=== PATIENT | male | born 1995 | race African-American/Black ===

== ENCOUNTER 2017-09-24 18:17 | Observation (INO) | payer OTHER ==
[~2017-09-24] VITALS: Ht 170.2 cm; Wt 61.4 kg
[2017-09-24] MEDS ORDERED: ACETAMINOPHEN 325 MG TAB PO STA (18:28)
[2017-09-24] MEDS ORDERED: OPTIRAY 320 IV PRN (18:45)
[2017-09-24 18:59] LABS: BASO % 0.3 %; BASO ABS # 0.02 K/uL (0-0.2); EOS % 1.3 %; HEMATOCRIT 41.7 % (42-52); HEMOGLOBIN 13.3 g/dL (14.0-18.0); IG# 0.04 K/uL (0.00-0.02); LYMPH % 37.2 %; LYMPH ABS # 2.96 K/uL (1.2-3.4); MEAN CELL VOLUME 71.3 fL (80-100); MEAN CORPUSCULAR HEMOGLOBIN 22.7 pg (25-34); MEAN CORPUSCULAR HGB CONC 31.9 g/dl (32-36); MEAN PLATELET VOLUME 11.6 fL (7.4-10.4); MONO % 7.5 %; NEUT % 53.2 %; NEUT ABS # 4.24 K/uL (1.4-6.5); PLATELET COUNT 196 K/uL (130-400); RED CELL DISTRIBUTION WIDTH CV 14.9 % (11.5-14.5); RED CELL DISTRIBUTION WIDTH SD 38.7 fL (36.4-46.3); WHITE BLOOD COUNT 7.96 K/uL (4.8-10.8)
[2017-09-24 19:21] LABS: ALBUMIN 3.9 gm/dl (3.4-5.0); CALCIUM 8.7 mg/dl (8.5-10.1); CREATININE 1.16 mg/dl (0.60-1.40); POTASSIUM 3.4 mmol/L (3.5-5.1); TOTAL PROTEIN 7.3 gm/dl (6.4-8.2)
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
[2017-09-24] MEDS ORDERED: LORAZEPAM 0.5 MG TAB PO PRN (20:45)
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
[2017-09-24] MEDS ORDERED: IV FLUIDS COMPLETED PRN (21:15)
[2017-09-24] MEDS: KETOROLAC TROMETHAMINE 30 MG/ML VIAL IV PRN (21:25)
[2017-09-24 21:55] VITALS: BP 117/65; PULSE 67; TEMP 37; O2SAT 97; Ht 170.2 cm; Wt 61.4 kg
[2017-09-24] MEDS: TRAMADOL HCL 50 MG TAB PO PRN (23:08)
[2017-09-24 23:40] VITALS: BP 119/56; PULSE 67; TEMP 37; O2SAT 97
[2017-09-25] VITALS (11 sets, daily range): BP systolic 112–138; BP diastolic 53–73; PULSE 56–70; TEMP 36.5–37; O2SAT 95–100
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
--- NOTE | 2017-09-25 07:26 | DIAGNOSTIC IMAGING REPORT ---
CHEST ONE VIEW PORTABLE CLINICAL HISTORY: 22 years-old Male presenting with left pneumothorax. TECHNIQUE: Portable upright AP view of the chest was obtained. COMPARISON: CT chest from the previous day. FINDINGS: Cardiomediastinal silhouette normal. Persistent small to moderate left apical pneumothorax with a pleural separation of 3.6 cm. This is similar to the chest CT from yesterday allowing for prior supine technique. Osseous structures normal. Upper abdomen normal. IMPRESSION: 1. Small to moderate left apical pneumothorax. No significant change. Continued follow-up recommended. Electronically signed by: Davonte Chacon M.D. 09/25/2017 7:25 AM Dictated Date/Time: 09/25/2017 7:24 AM
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
[2017-09-25] MEDS: ENOXAPARIN 30 MG/0.3 ML SYR SQ SCH (11:41)
[2017-09-25] MEDS: KETOROLAC TROMETHAMINE 30 MG/ML VIAL IV PRN ×2 (16:27→22:43)
[2017-09-25] MEDS: TRAMADOL HCL 50 MG TAB PO PRN (19:23)
[2017-09-26] VITALS (7 sets, daily range): BP systolic 108–121; BP diastolic 53–72; PULSE 52–57; TEMP 36.5–37; O2SAT 97–100
[2017-09-26] MEDS: ENOXAPARIN 30 MG/0.3 ML SYR SQ SCH (09:02)
--- NOTE | 2017-09-26 09:19 | DIAGNOSTIC IMAGING REPORT ---
CHEST ONE VIEW PORTABLE CLINICAL HISTORY: left pneumothorax pneumothorax COMPARISON STUDY: 09/25/2017 FINDINGS: Moderate decrease in volume of a left-sided pneumothorax. Current maximum pleural separation is 2.6 cm. This is improved from the prior measurement of 3.5 cm. Lungs otherwise appear clear. There are no focal infiltrative changes. IMPRESSION: Improving left-sided pneumothorax. Current maximum pleural separation is 2.6 cm improved from the prior exam of 3.5 cm. The above report was generated using voice recognition software. It may contain grammatical, syntax or spelling errors. Electronically signed by: Eddie Moreno M.D. 09/26/2017 9:17 AM Dictated Date/Time: 09/26/2017 9:16 AM
[2017-09-26] MEDS: KETOROLAC TROMETHAMINE 30 MG/ML VIAL IV PRN (09:29)
[2017-09-26] MEDS ORDERED: ULT50X PO (09:34)
--- NOTE | 2017-09-26 09:37 | Discharge Instructions ---
Discharge Instructions Date of Service Sep 26, 2017. Admission Reason for Admission: Rib Fracture; Traumatic Pneumohemothorax Discharge Discharge Diagnosis / Problem: Left traumatic pneumothorax Discharge Goals Goal(s): Decrease discomfort (Use pain meds as discussed.) Activity Recommendations Activity Limitations: as noted below Lifting Limitations: gradually increase as tolerated Exercise/Sports Limitations: gradually increase as tolerated May Resume Sexual Activity: when tolerated Shower/Bathe: no limitations Driving or Machine Use: resume 3 days after discharge . Instructions / Follow-Up Instructions / Follow-Up Avoid strenuous activity until I see you in the office this week. May shower. Call [phone] Weaver if there are any problems. Current Hospital Diet Patient's current hospital diet: Regular Diet Discharge Diet Recommended Diet: Regular Diet Procedures Procedures Performed: None Pending Studies Studies pending at discharge: no Medical Emergencies . Who to Call and When: Medical Emergencies: If at any time you feel your situation is an emergency, please call 911 immediately. . Non-Emergent Contact Non-Emergency issues call your: Surgeon . "Provider Documentation" section prepared by Kaiden Weaver. .
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
== END 2017-09-26 10:35 | disposition home or self-care (01) ==
LOC: C.EDB 18:19 → C.MSN 20:40 → ENRESERV 20:56
PROVIDERS: ADMIT Surgery; ATTEND Surgery
DX: S29.9XXA Unspecified injury of thorax, initial encounter (principal); J93.9 Pneumothorax, unspecified; V47.0XXA Car driver injured in collision with fixed or stationary object in nontraffic accident, initial encounter

== ENCOUNTER → 2017-09-30 | Outpatient (CLI) | payer OTHER ==
[~2017-09-30] MED LIST: ULT50X PO
--- NOTE | 2017-09-30 13:45 | DIAGNOSTIC IMAGING REPORT ---
CHEST 2 VIEWS ROUTINE CLINICAL HISTORY: J93.9 [id number] COMPARISON STUDY: 09/26/2017 FINDINGS: Slight improvement in the left apical pneumothorax. Maximum pleural separation currently is 2 cm improved from 2.6 cm. Lungs otherwise appear clear. IMPRESSION: Improving left apical pneumothorax. Maximum residual pleural separation 2 cm. The above report was generated using voice recognition software. It may contain grammatical, syntax or spelling errors. Electronically signed by: Eddie Moreno M.D. 09/30/2017 1:43 PM Dictated Date/Time: 09/30/2017 1:42 PM
== END | disposition home or self-care (01) ==
LOC: C.RAD 13:21
PROVIDERS: ATTEND Surgery
DX: J93.9 Pneumothorax, unspecified (principal)